=== PATIENT | female | born 1995 | race African-American/Black ===

== ENCOUNTER 2022-03-05 00:40 | Emergency (ER) | payer MEDICAID ==
[~2022-03-05] VITALS: Ht 165.1 cm; Wt 107.5 kg
[2022-03-05 06:27] VITALS: BP 126/78
[2022-03-05 06:54] LABS: CLARITY URINE CLEAR (CLEAR); COLOR URINE YELLOW (YELLOW); KETONES URINE TRACE (NEGATIVE); LEUKOCYTE ESTERASE URINE 2+ (NEGATIVE); NITRITE URINE NEGATIVE (NEGATIVE); OCCULT BLOOD URINE NEGATIVE (NEGATIVE); PH URINE 5.5 (4.5-8.0); PROTEIN URINE NEGATIVE (NEGATIVE); SPECIFIC GRAVITY URINE 1.023 (1.005-1.030)
[2022-03-05] MEDS ORDERED: NITR100C PO (07:04)
== END 2022-03-05 07:17 | disposition home or self-care (01) ==
LOC: ER 00:40
DX: N39.0 Urinary tract infection, site not specified (principal)
CPT/HCPCS: 81003; 81025; 99283